=== PATIENT | male | born 1940 | race African-American/Black ===

== ENCOUNTER 2025-06-16 08:23 | Observation (INO) ==
--- NOTE | 2025-06-16 08:31 | ED.PDOC ---
General [facility] ED Provider: Dr. SYLVIA FERNANDES MD Chief Complaint: Abdominal Pain Stated Complaint: Patient is an 84-year-old male that reported to the emergency department for abdominal pain in the left lower quadrant and diarrhea. Patient stated that he had diarrhea for 1 day. Patient stated that he had multiple bouts of diarrhea. Patient stated that he took an [id number] diarrhea pill with minimal relief. Patient denies any hematochezia, hemoptysis, or melanic stools. Patient stated [facility] when he had similar symptoms that he had infectious colitis. Patient stated that he has not been outside the country recently nor has he drink from any impure water sources or ate anything that did not taste right to him. Patient stated that he has not had any fever, lymphadenopathy, headache, or any other acute symptoms other than the diarrhea with left lower quadrant abdominal pain. Patient currently rates his abdominal pain at a 6 out of 10. Patient stated that nothing seems to make his pain better or worse. Patient's vital signs are currently stable. Patient's GCS is 15. Time Seen by Provider: 06/16/25 08:25 Information Source: Patient and EMT Exam Limitations: No limitations Nursing and Triage Documentation Reviewed and Agree: Yes Opioid Naive vs. Tolerant What is Opioid Naive?: *Opioid Naive implies the patient is not already taking opioids or not chronically receiving opioids on a daily basis. *PRN dosing is not "usually" associated with tolerance. *Patients are at higher risk of over-sedation and aspiration. What is Opioid Tolerant?: *Opioid Tolerance implies less than the expected response to an opioid. *Acquired tolerance is defined by the patient taking 60mg of oral morphine daily (or equianalgesic dose of another opioid) for 1 week or more. *Often associated with chronic pain. *May take more than usual dose to achieve desired pain control. Review of Systems Review Of Systems Constitutional: Reports No symptoms Eyes: Reports No symptoms Ears, Nose, Mouth, Throat: Reports No symptoms Respiratory: Reports No symptoms Cardiac: Reports No symptoms GI: Reports Abdominal pain (Left lower quadrant abdominal pain) and Diarrhea : Reports No symptoms Musculoskeletal: Reports No symptoms Skin: Reports No symptoms Neurological: Reports No symptoms Endocrine: Reports No symptoms Hematologic/Lymphatic: Reports No symptoms All Other Systems: Reviewed and Negative [facility] Medical History (Updated 06/16/25 @ 10:59 by SYLVIA FERNANDES MD) Prostate cancer C61 - Malignant neoplasm of prostate (ICD-10) A-fib I48.91 - Unspecified atrial fibrillation (ICD-10) Physical Exam Physical Exam Appearance: Reports Well-appearing, No pain distress and Well-nourished Ill-appearing: None Pain Distress: None Eyes: Reports AZRA, EOMI and Conjunctiva clear ENT: Reports Nose normal and Oropharynx normal Neck: Supple Respiratory: Reports Airway patent, Breath sounds clear, Breath sounds equal and Respirations nonlabored Cardiovascular: Reports RRR, Pulses normal, No rub and No murmur GI/: Reports Soft, Tender (Patient had tenderness to palpation of the left lower abdominal quadrant. No masses were noted. No bruising noted. Thakkar sign negative. McBurney's point tenderness negative.) and Bowel sounds hypoactive Musculoskeletal: Reports Normal strength, ROM intact and No edema Skin: Reports Warm, Dry and Normal color Neurological: Reports Sensation intact, Motor intact, Alert and Oriented Psychiatric: Reports Affect appropriate and Mood appropriate Physician Progress Note Physician Progress Note: Patient is an 84-year-old male that reported to the emergency department for abdominal pain in the left lower quadrant and diarrhea. Patient stated that he had diarrhea for 1 day. Patient stated that he had multiple bouts of diarrhea. Patient stated that he took an dnct-rrw-wbnwckp diarrhea pill with minimal relief. Patient denies any hematochezia, hemoptysis, or melanic stools. Patient stated that [facility] when he had similar symptoms that he had infectious colitis. Patient stated that he has not been outside the country recently nor has he drink from any impure water sources or ate anything that did not taste right to him. Patient stated that he has not had any fever, lymphadenopathy, headache, or any other acute symptoms other than the diarrhea with left lower quadrant abdominal pain. Patient currently rates his abdominal pain at a 6 out of 10. Patient stated that nothing seems to make his pain better or worse. Patient's vital signs are currently stable. Patient's GCS is 15. -Will give IV NS 1 L bolus for dehydration. -Will order CT abd/pelvis with contrast for acute abdominal pain. -Will order baseline labs. -Will give the patient IV ondansetron 4 mg once for nausea. -Will give the patient IV Toradol 15 mg once for pain. -Pt has a leukocyte esterase positive UTI. Will give IV cipro 400 mg. -CT abd/pelvis showed 1. No acute findings. 2. Intrahepatic and extrahepatic biliary ductal dilatation and mild intrahepatic pneumobilia as well as dilatation of the adjacent main pancreatic duct in the setting of prior cholecystectomy. Correlate with LFTs. Consider further workup as clinically warranted. No priors for comparison. 3. Diffuse thickening of the gastric wall which may be accentuated by decompression. Gastritis not excluded. Fluid in the small bowel and proximal colon, exclude gastritis. No bowel obstruction. No evidence of acute appendicitis. 4. 1.7 cm sclerotic bone lesion within S1 suggesting a benign bone island, cannot exclude metastatic lesion given history of prostate cancer. -([phone]) Spoke to hospitalist for admission and discussed pt's HPI and current findings and treatment. She stated that she wanted to take a closer look at the pt's CT and that she would call me back. -([phone]) Hopitalist, Tesha, has agreed to accept this pt for admissions to the hospital. Pt's vital signs are stable at time of acceptance. Course Course 06/16/25 08:45 06/16/25 08:45 Orders, Labs, Meds: Lab Review 06/16/25 06/16/25 08:45 09:45 WBC 6.50 RBC 4.13 L Hgb 11.5 L Hct 35.9 L MCV 86.9 MCH 27.8 MCHC 32.0 RDW Coeff of Kelly 14.0 Plt Count 240 Immature Gran % (Auto) 0.3 Neut % (Auto) 60.7 Lymph % (Auto) 22.2 Schley % (Auto) 12.6 H Eos % (Auto) 3.4 Baso % (Auto) 0.8 Neut # (Auto) 4.0 Lymph # (Auto) 1.4 Schley # (Auto) 0.8 Eos # (Auto) 0.2 Baso # (Auto) 0.1 Immature Gran # (Auto) 0.0 Sodium 138.4 Potassium 4.13 Chloride 104.1 Carbon Dioxide 18.6 L Anion Gap 19.83 BUN 28.4 H Creatinine 1.07 Estimated GFR (MDRD) 66.00 BUN/Creatinine Ratio 26.54 Glucose 80.6 Calcium 9.68 Total Bilirubin 1.40 H AST 24.6 ALT 19.9 Alkaline Phosphatase 64.8 Total Protein 7.84 Albumin 4.66 Globulin 3.18 Albumin/Globulin Ratio 1.46 Lipase 47.2 Urine Color Yellow Urine Clarity Clear Urine pH 6.0 Ur Specific [place] 1.020 Urine Protein Negative Urine Glucose (UA) Negative Urine Ketones 3+ H Urine Blood Trace-intact H Urine Nitrite Negative Urine Bilirubin Negative Urine Urobilinogen 0.2 Ur Leukocyte Esterase Trace H Urine Microscopic RBC 5-10 Urine Microscopic WBC 20-30 Ur Squamous Epith Cells 2-5 Urine Bacteria 1+ Urine Mucus 2+ Orders Category Date Time Status C-DIFF MONITORING (NURSING) BID CARE 06/16/25 08:28 Active NPO REMINDER: IMAGING ONCE CARE 06/16/25 08:27 Completed ED IV/MEDIPORT/POWERPORT .ONCE EMERGENCY 06/16/25 08:26 Active C-DIFF [C. DIFFICILE] ONCE LAB 06/16/25 08:28 Uncollected CBC W/ AUTO DIFF Stat LAB 06/16/25 08:45 Completed COMPREHENSIVE METABOLIC PANEL Stat LAB 06/16/25 08:45 Completed H. PYLORI STOOL AG Stat LAB 06/16/25 Uncollected LIPASE Stat LAB 06/16/25 08:45 Completed STOOL CULTURE Stat LAB 06/16/25 Uncollected URINALYSIS C & S IF INDICATED Stat LAB 06/16/25 09:45 Completed URINE CULTURE Stat LAB 06/16/25 09:45 Received 0.9 % Sodium Chloride [Saline Flush] Meds 06/16/25 08:26 Active 1 syr IVF PRN PRN Ciprofloxacin/D5w [Cipro 400 mg/200 ml D5w] Meds 06/16/25 10:20 Discontinued 400 mg in 200 ml IV ONCE Iohexol [Omnipaque 350 mg/ml 100Ml] Meds 06/16/25 09:33 Discontinued 100 ml IVP ONCE ONE Ketorolac Tromethamine [Toradol] Meds 06/16/25 09:09 Discontinued 15 mg IVP ONCE STA Ondansetron HCl/Pf [Zofran Sdv] Meds 06/16/25 08:35 Discontinued 4 mg IVP ONCE STA Sodium Chloride 0.9% [Sodium Chloride] 1,000 ml Meds 06/16/25 08:[address] ABDOMEN/PELVIS W CONTRAST Stat RADS 06/16/25 08:26 Completed Medications Generic Name Dose Route Start Last Admin Trade Name Freq PRN Reason Stop Dose Admin Sodium Chloride 1 syr 06/16/25 08:26 0.9% Sodium Chloride 10 Ml Disp.Syrin IVF PRN PRN To flush IV Discontinued Medications Generic Name Dose Route Start Last Admin Trade Name Freq PRN Reason Stop Dose Admin Sodium Chloride 1,000 mls @ 1,000 mls/hr 06/16/25 08:27 06/16/25 09:15 Sodium Chloride IV 06/16/25 09:26 1,000 mls/hr BOLUS ONE Administration Ciprofloxacin/Dextrose 400 mg in 200 mls @ 200 mls/hr 06/16/25 10:20 06/16/25 10:28 Cipro 400 Mg/200 Ml D5w IV 06/16/25 11:19 200 mls/hr ONCE ONE Administration Iohexol 100 ml 06/16/25 09:33 06/16/25 09:34 Iohexol 350 Mg/Ml 100ml IVP 06/16/25 09:34 100 ml ONCE ONE Administration Ketorolac Tromethamine 15 mg 06/16/25 09:09 06/16/25 09:15 Ketorolac Tromethamine 15 Mg/Ml Vial IVP 06/16/25 09:10 15 mg ONCE STA Administration Ondansetron HCl 4 mg 06/16/25 08:35 06/16/25 09:15 Ondansetron Hcl/Pf 4 Mg/2 Ml Sdv IVP 06/16/25 08:36 4 mg ONCE STA Administration Vital Signs: Temp Pulse Resp BP Pulse Ox 06/16/25 08:24 97.9 F 66 20 156/76 H 100 Discharge Plan Discharge Patient Disposition: PLACED OBSERVATION Discharge Problem: Abdominal pain, Dehydration Diarrhea Qualifiers: Diarrhea type: unspecified type Qualified Code(s): R19.7 - Diarrhea, unspecified UTI (urinary tract infection) Qualifiers: Urinary tract infection type: acute cystitis Hematuria presence: with hematuria Qualified Code(s): N30.01 - Acute cystitis with hematuria Did you review [place] [employer] for ALL controlled substances?: Not Applicable ED Provider: SYLVIA FERNANDES Condition: Stable
[2025-06-16] MEDS ORDERED: MORPHINE 2 MG/ML SYRINGE IVP ONE (08:35)
[2025-06-16 08:47] LABS: IMMATURE GRANULOCYTE # (AUTO) 0.0 (0.0-1.0); IMMATURE GRANULOCYTE % (AUTO) 0.3 % (0.0-5.0); RDW COEFFICIENT OF VARIATION 14.0 % (11.6-14.8)
[2025-06-16 09:01] LABS: CREATININE 1.07 mg/dL (0.60-1.10)
[2025-06-16] MEDS: TORADOL IVP STA (09:15)
[2025-06-16] MEDS: SODIUM CHLORIDE 1,000 ML IV ONE (09:15)
[2025-06-16] MEDS: ZOFRAN SDV IVP STA (09:15)
[2025-06-16] MEDS: OMNIPAQUE 350 MG/ML 100ML IVP ONE (09:34)
[2025-06-16 10:10] LABS: GLUCOSE, URINE (UA) Negative (NEGATIVE); LEUKOCYTE ESTERASE ,URINE Trace (NEGATIVE); URINE, BLOOD Trace-intact (NEGATIVE)
[2025-06-16 10:16] LABS: URINE WBC, MICROSCOPIC 20-30 (0-2)
[2025-06-16] MEDS: CIPRO 400 MG/200 ML D5W 400 MG/200 ML BAG IV ONE (10:28)
--- NOTE | 2025-06-16 10:45 | CT ---
EXAM: CT ABDOMEN AND PELVIS WITH CONTRAST HISTORY: acute abdominal pain. TECHNIQUE: Contiguous axial tomographic sections were obtained from the dome of the diaphragm through the ischial tuberosities following the administration of iodinated intravenous contrast. Coronal and sagittal reformats were then performed. Automatic exposure control was utilized for dose reduction technique. COMPARISON: None FINDINGS: LOWER CHEST: No acute findings. Limited evaluation. LIVER: Normal size and attenuation without focal hepatic lesion. GALLBLADDER: Cholecystectomy. BILIARY: Mild right intrahepatic and moderate to severe left hepatic biliary ductal dilatation with minimal pneumobilia in the left hepatic lobe. The CBD is dilated to 11 mm. PANCREAS: The pancreatic duct measures 2-3 mm in the neck but measures up to 7 mm in the head. The pancreas is atrophic. SPLEEN: Normal size and contour. ADRENALS: Normal size and shape without nodularity. KIDNEYS: Multiple low-density subcentimeter foci are seen in the kidneys, too small to characterize by CT but statistically benign. No hydronephrosis. Nonspecific symmetric bilateral perinephric stranding. VASCULATURE: Atheromatous aorta without aneurysm. Mild ectasia of the distal abdominal aorta to 2.7 cm. Moderate stenosis origin of the celiac. LYMPH NODES: No pathologically enlarged lymph nodes by CT size criteria. PERITONEUM/MESENTERY: No free fluid, free air or mesenteric inflammatory change. No loculated fluid collection. BOWEL: There is diffuse thickening of the gastric wall with thickening of the rugal folds diffusely. There is fluid noted throughout the nondilated nonobstructed small bowel through the terminal ileum. The appendix is identified and has a normal diameter. There is fluid in the proximal colon. Diffusely decompressed colon demonstrates limited evaluation. No gross colitis or acute diverticulitis. URINARY BLADDER: The bladder has normal contours and wall thickness. REPRODUCTIVE: Brachytherapy seeds throughout the prostate bed. Prostamegaly. MUSCULOSKELETAL: Multilevel degenerative spondylosis. Spiculated 1.7 cm sclerotic bone lesion within S1 is suggestive of a benign bone island though given history of prostate cancer metastatic lesion is not excluded. IMPRESSION: 1. No acute findings. 2. Intrahepatic and extrahepatic biliary ductal dilatation and mild intrahepatic pneumobilia as well as dilatation of the adjacent main pancreatic duct in the setting of prior cholecystectomy. Correlate with LFTs. Consider further workup as clinically warranted. No priors for comparison. 3. Diffuse thickening of the gastric wall which may be accentuated by decompression. Gastritis not excluded. Fluid in the small bowel and proximal colon, exclude gastritis. No bowel obstruction. No evidence of acute appendicitis. 4. 1.7 cm sclerotic bone lesion within S1 suggesting a benign bone island, cannot exclude metastatic lesion given history of prostate cancer. All CT scans are performed using dose optimization techniques as appropriate to the performed exam and include at least one of the following: Automated exposure control, adjustment of the mA and/or kV according to size, and the use of iterative reconstruction technique.
[2025-06-16 12:17] VITALS: BMI 20.9
--- NOTE | 2025-06-16 13:51 | PCM ---
Date of Service Date Seen by Provider: 06/16/25 Time Seen by Provider: 11:20 Admit Day/Time Admission Date: 06/16/25 Reason for Admission Chief Complaint: INTRACTABLE DIARRHEA, ABDOMINAL PAIN Hospital Provider Hospital Provider: MANUEL CARTAGENA PA-C, [facility] [place] Primary Care Physician Primary Care Physician: TIM SHARIF History of Present Illness History of Present Illness: This is a pleasant 84 yo male with history of prostate cancer s/p brachytherapy, cholecystectomy and EUS/ERCP with biliary drainage x 3, hypertension, paroxysmal atrial fibrillation, osteoarthritis presents to ER with 24 hour history of diarrhea. Reports 10+ episodes of loose, watery stools in that time associated with mild LLQ discomfort. He had scant BRBPR with most recent stool but not prominent hematochezia. Denies fever and chills, nausea and vomiting. No recent sick contacts or abx use. Patient reports he's had similar symptoms in the past; last similar episode approximately 1 year ago. ER workup including labs and imaging reviewed. Patient received Cipro for suspected UTI in ER. Case Discussed With Case Discussed With: Patient's case was discussed with the ER Physicians, Dr. Jeffries [facility] Medical History Hernia K46.9 - Unspecified abdominal hernia without obstruction or gangrene (ICD- 10) Hypertension I10 - Essential (primary) hypertension (ICD-10) Prostate cancer C61 - Malignant neoplasm of prostate (ICD-10) A-fib I48.91 - Unspecified atrial fibrillation (ICD-10) Surgical History (Updated 06/16/25 @ 13:40 by MANUEL CARTAGENA PA-C) History of ERCP Z98.890 - Other specified postprocedural states (ICD-10) Hx of cholecystectomy Z90.49 - Acquired absence of other specified parts of digestive tract (ICD- 10) Family History FATHER Colon cancer BROTHER No problems noted. BROTHER Colon cancer Social History Smoking and tobacco status: Former smoker Alcohol intake: current Alcohol intake frequency: a few times a month Allergies Allergies Allergy/AdvReac Type Severity Reaction Status Date / Time morphine AdvReac Severe Swelling Verified 06/16/25 09:06 aspirin AdvReac Verified 06/16/25 09:18 Current Medications Home Medications Sodium Chloride (0.9% Sodium Chloride 10 Ml Disp.Syrin) 1 syr IVF PRN PRN PRN Reason: To flush IV diltiazem HCl 180 mg capsule,extended release 24 hr (Cardizem CD) 180 mg PO DAILY 06/16/25 [History Confirmed 06/16/25] gabapentin 600 mg tablet 600 mg PO BID 06/16/25 [History Confirmed 06/16/25] losartan 50 mg tablet 75 mg PO DAILY 06/16/25 [History Confirmed 06/16/25] omeprazole 20 mg capsule,delayed release 20 mg PO BID 06/16/25 [History Confirmed 06/16/25] tamsulosin 0.4 mg capsule 0.4 mg PO DAILY 06/16/25 [History Confirmed 06/16/25] Opioid Naive vs. Tolerant Does Patient Take Opioids?: No Is Patient Opioid Naive?: Yes What is Opioid Naive?: *Opioid Naive implies the patient is not already taking opioids or not chronically receiving opioids on a daily basis. *PRN dosing is not "usually" associated with tolerance. *Patients are at higher risk of over-sedation and aspiration. Is Patient Opioid Tolerant?: No What is Opioid Tolerant?: *Opioid Tolerance implies less than the expected response to an opioid. *Acquired tolerance is defined by the patient taking 60mg of oral morphine daily (or equianalgesic dose of another opioid) for 1 week or more. *Often associated with chronic pain. *May take more than usual dose to achieve desired pain control. Review of Systems Constitutional: Reports Recent Weight Loss (Tells me weight fluctuates); Denies Fever, Fatigue, Chills or Loss of appetite Eyes: Reports No symptoms Ears: Reports No symptoms Nose: Reports No symptoms Mouth: Reports No symptoms Throat: Reports No symptoms Cardiovascular: Denies Chest pain, Edema or Palpitations Respiratory: Denies Cough or Shortness of air Gastrointestinal: Reports Diarrhea and Abdominal pain; Denies Nausea, Vomiting or Black Tarry Stools Genitourinary: Denies Dysuria or Hematuria Musculoskeletal: Reports No symptoms Neurological: Reports No symptoms Physical examination Most Recent Vital Signs: Most Recent Vital Signs Temperature 97.5 F L 06/16/25 12:05 Temperature Source Temporal Artery Scan 06/16/25 12:05 Temperature Source Infrared 06/16/25 08:24 Pulse Rate 67 06/16/25 12:05 Respiratory Rate 16 06/16/25 12:05 Blood Pressure 156/76 H 06/16/25 08:24 Blood Pressure Left Arm 173/76 06/16/25 12:05 Blood Pressure Position Supine 06/16/25 12:05 O2 Sat by Pulse Oximetry 100 06/16/25 12:05 Oxygen Delivery Method Room Air 06/16/25 13:00 Height 5 ft 11 in 06/16/25 12:05 Weight 68 kg 06/16/25 12:05 Appearance: Positive Alert and Oriented x3 and Thin Skin: Negative Jaundice HEENT: Positive Normocephalic, Atraumatic and Oral Mucous Moist Neck: Positive Supple; Negative JVD Chest/Lungs: Positive Symmetrical With Equal Breath Sounds and Clear to Auscultation Bilaterally Heart: Positive RRR; Negative Murmur GI/: Positive Soft, Tender (mild diffuse tenderness) and Bowel Sounds Hyperactive; Negative Mass, Guarding or Rebound Tenderness Musculoskeletal: Negative Asymmetry or Defects Extremities: Negative Edema Neurological: Positive Other (Grossly WNL) Psychiatric: Positive Oriented x4, Good Long-Term Recall, Normal Judgement and Normal Insight Labs This Visit Labs This Visit: Labs This Visit 06/16/25 06/16/25 08:45 09:45 WBC 6.50 RBC 4.13 L Hgb 11.5 L Hct 35.9 L MCV 86.9 MCH 27.8 MCHC 32.0 RDW Coeff of Kelly 14.0 Plt Count 240 Immature Gran % (Auto) 0.3 Neut % (Auto) 60.7 Lymph % (Auto) 22.2 [place] % (Auto) 12.6 H Eos % (Auto) 3.4 Baso % (Auto) 0.8 Neut # (Auto) 4.0 Lymph # (Auto) 1.4 [place] # (Auto) 0.8 Eos # (Auto) 0.2 Baso # (Auto) 0.1 Immature Gran # (Auto) 0.0 Sodium 138.4 Potassium 4.13 Chloride 104.1 Carbon Dioxide 18.6 L Anion Gap 19.83 BUN 28.4 H Creatinine 1.07 Estimated GFR (MDRD) 66.00 BUN/Creatinine Ratio 26.54 Glucose 80.6 Calcium 9.68 Total Bilirubin 1.40 H AST 24.6 ALT 19.9 Alkaline Phosphatase 64.8 Total Protein 7.84 Albumin 4.66 Globulin 3.18 Albumin/Globulin Ratio 1.46 Lipase 47.2 Urine Color Yellow Urine Clarity Clear Urine pH 6.0 Ur Specific [place] 1.020 Urine Protein Negative Urine Glucose (UA) Negative Urine Ketones 3+ H Urine Blood Trace-intact H Urine Nitrite Negative Urine Bilirubin Negative Urine Urobilinogen 0.2 Ur Leukocyte Esterase Trace H Urine Microscopic RBC 5-10 Urine Microscopic WBC 20-30 Ur Squamous Epith Cells 2-5 Urine Bacteria 1+ Urine Mucus 2+ Imaging Imaging: EXAM: CT ABDOMEN AND PELVIS WITH CONTRAST HISTORY: acute abdominal pain. TECHNIQUE: Contiguous axial tomographic sections were obtained from the dome of the diaphragm through the ischial tuberosities following the administration of iodinated intravenous contrast. Coronal and sagittal reformats were then performed. Automatic exposure control was utilized for dose reduction technique. COMPARISON: None FINDINGS: LOWER CHEST: No acute findings. Limited evaluation. LIVER: Normal size and attenuation without focal hepatic lesion. GALLBLADDER: Cholecystectomy. BILIARY: Mild right intrahepatic and moderate to severe left hepatic biliary ductal dilatation with minimal pneumobilia in the left hepatic lobe. The CBD is dilated to 11 mm. PANCREAS: The pancreatic duct measures 2-3 mm in the neck but measures up to 7 mm in the head. The pancreas is atrophic. SPLEEN: Normal size and contour. ADRENALS: Normal size and shape without nodularity. KIDNEYS: Multiple low-density subcentimeter foci are seen in the kidneys, too small to characterize by CT but statistically benign. No hydronephrosis. Nonspecific symmetric bilateral perinephric stranding. VASCULATURE: Atheromatous aorta without aneurysm. Mild ectasia of the distal abdominal aorta to 2.7 cm. Moderate stenosis origin of the celiac. LYMPH NODES: No pathologically enlarged lymph nodes by CT size criteria. PERITONEUM/MESENTERY: No free fluid, free air or mesenteric inflammatory change. No loculated fluid collection. BOWEL: There is diffuse thickening of the gastric wall with thickening of the rugal folds diffusely. There is fluid noted throughout the nondilated nonobstructed small bowel through the terminal ileum. The appendix is identified and has a normal diameter. There is fluid in the proximal colon. Diffusely decompressed colon demonstrates limited evaluation. No gross colitis or acute diverticulitis. URINARY BLADDER: The bladder has normal contours and wall thickness. REPRODUCTIVE: Brachytherapy seeds throughout the prostate bed. Prostamegaly. MUSCULOSKELETAL: Multilevel degenerative spondylosis. Spiculated 1.7 cm sclerotic bone lesion within S1 is suggestive of a benign bone island though given history of prostate cancer metastatic lesion is not excluded. IMPRESSION: 1. No acute findings. 2. Intrahepatic and extrahepatic biliary ductal dilatation and mild intrahepatic pneumobilia as well as dilatation of the adjacent main pancreatic duct in the setting of prior cholecystectomy. Correlate with LFTs. Consider further workup as clinically warranted. No priors for comparison. 3. Diffuse thickening of the gastric wall which may be accentuated by decompression. Gastritis not excluded. Fluid in the small bowel and proximal colon, exclude gastritis. No bowel obstruction. No evidence of acute appendicitis. 4. 1.7 cm sclerotic bone lesion within S1 suggesting a benign bone island, cannot exclude metastatic lesion given history of prostate cancer. Review Statement Review Statement: I have independently reviewed and interpreted the labs/EKGs/imaging that were ordered by the ER provider. I have reviewed all outside records that are available currently in our EMR including imaging/notes/labs from previous visits. Assessment (1) UTI (urinary tract infection): Status: Acute Code(s): N39.0 - Urinary tract infection, site not specified SNOMED Code(s): 87426658 (2) Dehydration: Status: Acute Code(s): E86.0 - Dehydration SNOMED Code(s): 30922842 (3) Diarrhea: Status: Acute Code(s): R19.7 - Diarrhea, unspecified SNOMED Code(s): 32540955 (4) Abdominal pain: Status: Acute Code(s): R10.9 - Unspecified abdominal pain SNOMED Code(s): 27669009 Plan Plan: 1. Intractable diarrhea. No recent sick contacts or outpatient abx use. 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 Consider infectious etiology as well. Stool studies pending. Cautious use of loperamide. 2. Mild dehydration. Gentle IVF. 3. UTI. Will continue Cipro. FU results of C&S. 4. Abdominal pain. Mild without distention. Does not appear to have a surgical abdomen. Monitor. 5. Hypertension. Resume home medications. 6. PAF. Currently in sinus rhythm. Not anticoagulated d/t h/o hematuria per patient. 7. Prostate cancer s/p brachytherapy 8. Mild Pneumobilia. this is likely chronic d/t history of prior instrumentation. 9. Spiculated 1.7 cm sclerotic bone lesion S1. Per radiologist suggestive of benign bony island but metastatic lesion not ruled out. D/w patient and advised follow up with his PCP and urologist. 10. Gastric thickening on CT. No gastritis complaints. Follow up with PCP as OP. DVT Prophylaxis: Prophylactic dose Lovenox Time Spent: Greater than 80 minutes spent with patient, 50% of the time spent with this patient was devoted to counseling and coordination of care. Advanced Care Planning: [5] minutes spent discussing advance care planning. Full code. , Luisito johnson POA. Smoking Cessation: non-smoker Disposition: Home with family on discharge Admit to: Observation Discussed Plan of Care with [Ozzy Lea] Medications Medication Orders: Medications Ordered Category Date Time Status 0.9 % Sodium Chloride [Saline Flush] Meds 06/16/25 08:26 Active 1 syr IVF PRN PRN
[2025-06-16] MEDS ORDERED: IMODIUM PO PRN (14:04)
[2025-06-16 14:06] VITALS: RESP 18
[2025-06-16] MEDS: SODIUM CHLORIDE 1,000 ML IV SCH (15:47)
[2025-06-16] MEDS: PRILOSEC PO SCH (17:03)
[2025-06-16 19:58] LABS: H. PYLORI STOOL ANTIGEN NEGATIVE
[2025-06-16] MEDS: CIPRO PO SCH (20:20)
[2025-06-16] MEDS: NEURONTIN PO SCH (20:21)
[2025-06-17 05:31] LABS: IMMATURE GRANULOCYTE # (AUTO) 0.0 (0.0-1.0); IMMATURE GRANULOCYTE % (AUTO) 0.2 % (0.0-5.0); RDW COEFFICIENT OF VARIATION 14.1 % (11.6-14.8)
[2025-06-17 05:56] LABS: CREATININE 0.94 mg/dL (0.60-1.10)
[2025-06-17] MEDS: NEURONTIN PO SCH (09:15)
[2025-06-17] MEDS: CARDIZEM CD PO SCH (09:15)
[2025-06-17] MEDS: FLOMAX PO SCH (09:15)
[2025-06-17] MEDS: COZAAR PO SCH (09:15)
[2025-06-17] MEDS: LOVENOX SUBCUT SCH (09:16)
[2025-06-17 10:00] VITALS: BP 159/74; PULSE 58; TEMP 97.1
--- NOTE | 2025-06-17 12:05 | DCSUM ---
Admission Date Admission Date: 06/16/25 Discharge Date Discharge Date: 06/17/25 Admission Diagnosis Admission Diagnosis: 1. Intractable diarrhea 2. Mild dehydration 3. UTI. Discharge Diagnosis Discharge Diagnosis: 1. Intractable diarrhea - resolved 2. Mild dehydration - resolved 3. UTI 4. Hypertension 5. PAF. Not anticoagulated d/t h/o hematuria per patient. 6. Prostate cancer s/p brachytherapy 7. Spiculated 1.7 cm sclerotic bone lesion S1 Hospital Provider Hospital Provider: Nanda Garcia PA-C, [facility] Primary Care Physician Primary Care Physician: TIM SHARIF Summary of History and Physical Summary of History and Physical: This is a pleasant 84 yo male with history of prostate cancer s/p brachytherapy, cholecystectomy and EUS/ERCP with biliary drainage x 3, hypertension, paroxysmal atrial fibrillation, osteoarthritis presents to ER with 24 hour history of diarrhea. Reports 10+ episodes of loose, watery stools in that time associated with mild LLQ discomfort. He had scant BRBPR with most recent stool but not prominent hematochezia. Denies fever and chills, nausea and vomiting. No recent sick contacts or abx use. Patient reports he's had similar symptoms in the past; last similar episode approximately 1 year ago. ER workup including labs and imaging reviewed. Patient received Cipro for suspected UTI in ER. Hospital Course Subjective: Patient started on Cipro. Has not had any diarrhea overnight or today. He has eat breakfast and lunch without issues. No abd pain, n/v/d. C diff negative. Urine culture showing gram neg rods. Will send home with script for cipro and will f/u on culture, if needed will contact patient. Otherwise, discussed CT findings with sclerotic lesion of S1 and to f/u with pcp and urology. Patient agrees to plan of care. Appearance: Pleasant, No Apparent Distress, Alert and Other (Nontoxic) HEENT: MMM and Supple CVS: Other (RRR) Abdomen: Soft, Non-Tender and No Distention Respiratory: No Accessory Muscle Use Extremities: No Edema Vital Signs: Most Recent Vital Signs Temperature 97.1 F L 06/17/25 09:59 Temperature Source Temporal Artery Scan 06/17/25 09:59 Temperature Source Infrared 06/16/25 08:24 Pulse Rate 58 L 06/17/25 09:59 Respiratory Rate 18 06/17/25 09:59 Blood Pressure 159/74 H 06/17/25 09:59 Blood Pressure Mean 102 06/17/25 09:59 Blood Pressure Left Arm 173/76 06/16/25 12:05 Blood Pressure Location Left Arm 06/17/25 09:59 Blood Pressure Position Supine 06/17/25 09:59 O2 Sat by Pulse Oximetry 98 06/17/25 09:59 Oxygen Delivery Method Room Air 06/17/25 11:49 Height 5 ft 11 in 06/16/25 12:05 Weight 68 kg 06/16/25 12:05 Telemetry Type Remote Telemetry 06/17/25 07:00 Telemetry Monitoring Continues 06/17/25 07:00 Telemetry Heart Rate 69 06/17/25 07:00 EKG OK Interval 0.22 H 06/17/25 07:00 EKG QRS Interval 0.09 06/17/25 07:00 Telemetry Strip Reading SR with 1st Degree AVB 06/17/25 07:00 Imaging: EXAM: CT ABDOMEN AND PELVIS WITH CONTRAST HISTORY: acute abdominal pain. TECHNIQUE: Contiguous axial tomographic sections were obtained from the dome of the diaphragm through the ischial tuberosities following the administration of iodinated intravenous contrast. Coronal and sagittal reformats were then performed. Automatic exposure control was utilized for dose reduction [place]. COMPARISON: None FINDINGS: LOWER CHEST: No acute findings. Limited evaluation. LIVER: Normal size and attenuation without focal hepatic lesion. GALLBLADDER: Cholecystectomy. BILIARY: Mild right intrahepatic and moderate to severe left hepatic biliary ductal dilatation with minimal pneumobilia in the left hepatic lobe. The CBD is dilated to 11 mm. PANCREAS: The pancreatic duct measures 2-3 mm in the neck but measures up to 7 mm in the head. The pancreas is atrophic. SPLEEN: Normal size and contour. ADRENALS: Normal size and shape without nodularity. KIDNEYS: Multiple low-density subcentimeter foci are seen in the kidneys, too small to characterize by CT but statistically benign. No hydronephrosis. Nonspecific symmetric bilateral perinephric stranding. VASCULATURE: Atheromatous aorta without aneurysm. Mild ectasia of the distal abdominal aorta to 2.7 cm. Moderate stenosis origin of the celiac. LYMPH NODES: No pathologically enlarged lymph nodes by CT size criteria. PERITONEUM/MESENTERY: No free fluid, free air or mesenteric inflammatory change. No loculated fluid collection. BOWEL: There is diffuse thickening of the gastric wall with thickening of the rugal folds diffusely. There is fluid noted throughout the nondilated nonobstructed small bowel through the terminal ileum. The appendix is identified and has a normal diameter. There is fluid in the proximal colon. Diffusely decompressed colon demonstrates limited evaluation. No gross colitis or acute diverticulitis. URINARY BLADDER: The bladder has normal contours and wall thickness. REPRODUCTIVE: Brachytherapy seeds throughout the prostate bed. Prostamegaly. MUSCULOSKELETAL: Multilevel degenerative spondylosis. Spiculated 1.7 cm sclerotic bone lesion within S1 is suggestive of a benign bone island though given history of prostate cancer metastatic lesion is not excluded. IMPRESSION: 1. No acute findings. 2. Intrahepatic and extrahepatic biliary ductal dilatation and mild intrahepatic pneumobilia as well as dilatation of the adjacent main pancreatic duct in the setting of prior cholecystectomy. Correlate with LFTs. Consider further workup as clinically warranted. No priors for comparison. 3. Diffuse thickening of the gastric wall which may be accentuated by decompression. Gastritis not excluded. Fluid in the small bowel and proximal colon, exclude gastritis. No bowel obstruction. No evidence of acute appendicitis. 4. 1.7 cm sclerotic bone lesion within S1 suggesting a benign bone island, cannot exclude metastatic lesion given history of prostate cancer. Lab Results Last 24 Hours: 06/17/25 06/16/25 05:19 14:20 WBC 6.45 RBC 3.88 L Hgb 10.7 L Hct 34.8 L MCV 89.7 MCH 27.6 MCHC 30.7 L RDW Coeff of Kelly 14.1 Plt Count 213 Immature Gran % (Auto) 0.2 Neut % (Auto) 62.6 Lymph % (Auto) 21.1 [place] % (Auto) 10.5 H Eos % (Auto) 5.0 Baso % (Auto) 0.6 Neut # (Auto) 4.0 Lymph # (Auto) 1.4 [place] # (Auto) 0.7 Eos # (Auto) 0.3 Baso # (Auto) 0.0 Immature Gran # (Auto) 0.0 Sodium 138.5 Potassium 4.17 Chloride 104.6 Carbon Dioxide 22.7 Anion Gap 15.37 BUN 22.9 H Creatinine 0.94 Estimated GFR (MDRD) 93.00 BUN/Creatinine Ratio 24.36 Glucose 77.1 Calcium 8.78 Total Bilirubin 1.15 AST 25.8 ALT 17.9 Alkaline Phosphatase 54.8 L Total Protein 6.90 Albumin 4.00 Globulin 2.90 Albumin/Globulin Ratio 1.37 Stool H. pylori Ag Negative Discharge Instructions Discharge Planning: Discharge Planning > [address] Alba Lea. Discharge Medications: Medications at Discharge (Home Meds & RX) diltiazem HCl 180 mg capsule,extended release 24 hr (Cardizem CD) 180 mg PO DAILY 06/16/25 gabapentin 600 mg tablet 600 mg PO BID 06/16/25 losartan 50 mg tablet 75 mg PO DAILY 06/16/25 omeprazole 20 mg capsule,delayed release 20 mg PO BID 06/16/25 tamsulosin 0.4 mg capsule 0.4 mg PO DAILY 06/16/25 ciprofloxacin HCl 250 mg tablet (Cipro) 250 mg PO BID 4 days #8 tabs 06/17/25 Discharge Plan Discharge Discharge Orders: Discharge Patient (ONCE); Ordered 06/17/25 Ordered By: NANDA GARCIA Activity Restrictions/Additional Instructions: DISCHARGE TO HOME DX: UTI, DIARRHEA CIPRO (ANTIBIOTIC) SENT IN FOR YOU FOLLOW UP WITH PCP FOLLOW UP WITH UROLOGY REGARDING YOUR HISTORY OF PROSTATE CANCER (YOUR CT SCAN SHOWED A LESION ON S1 (LOW BACK AREA) WHICH COULD BE NOTHING, BUT KNOWING YOUR HISTORY OF PROSTATE CANCER IT COULD BE DUE TO THAT) Instructions: Ciprofloxacin (By mouth), Urinary Tract Infection in Men (DC), Acute Diarrhea (ED) Patient Disposition: HOME SELF-CARE Prescriptions: New ciprofloxacin HCl [Cipro] 250 mg tablet 250 mg PO BID 4 Days Qty: 8 0RF Rx Instructions: START TONIGHT 06/17 Continued diltiazem HCl [Cardizem CD] 180 mg capsule,extended release 24hr 180 mg PO DAILY losartan 50 mg tablet 75 mg PO DAILY gabapentin 600 mg tablet 600 mg PO BID Rx Instructions: take 2 600mg at bedtime take 1 600mg in morning tamsulosin 0.4 mg capsule 0.4 mg PO DAILY omeprazole 20 mg capsule,delayed release(DR/EC) 20 mg PO BID Did you review [place] SIGN MAINTENANCE for ALL controlled substances?: Not Applicable Discussed opioids are addictive and Narcan is available by prescription or from pharmacy.: No Condition: Stable Referrals: TIM SHARIF [Primary Care Provider] - 5-7 Days Referral Note: attempt was made to schedule an appointment with your provider. They were unable to make appointment for you at this time but stated they will contact you to schedule this. If you do not hear from them, please call their clinic.
== END 2025-06-17 13:45 | disposition home or self-care (01) ==
LOC: SUPCPDRO → MEDSURG B 08:23 → ED 08:23 → MEDSURG B 12:00
PROVIDERS: ADMIT Hospitalist; ATTEND Physician Assistant
DX: R19.7 Diarrhea, unspecified; R10.9 Unspecified abdominal pain; I10 Essential (primary) hypertension; I48.0 Paroxysmal atrial fibrillation; E86.0 Dehydration; N30.01 Acute cystitis with hematuria; K31.89 Other diseases of stomach and duodenum; C61 Malignant neoplasm of prostate